=== PATIENT | male | born 1975 | race Caucasian/White ===

== ENCOUNTER 2017-12-03 12:53 | Emergency (ER) | payer OTHER ==
[~2017-12-03] VITALS: Ht 167.6 cm; Wt 81.6 kg
== END 2017-12-03 17:30 | disposition home or self-care (01) ==
LOC: ER 12:53
DX: J32.2 Chronic ethmoidal sinusitis (principal); I10 Essential (primary) hypertension; R42 Dizziness and giddiness; E11.9 Type 2 diabetes mellitus without complications

== ENCOUNTER 2018-05-24 19:55 | Emergency (ER) | payer OTHER ==
[~2018-05-24] VITALS: Ht 167.6 cm; Wt 81.6 kg
== END 2018-05-24 22:47 | disposition home or self-care (01) ==
LOC: ER 19:55
DX: G43.809 Other migraine, not intractable, without status migrainosus (principal)

== ENCOUNTER → 2018-05-30 | Emergency (ER) | payer OTHER ==
[~2018-05-30] VITALS: Ht 167.6 cm; Wt 86.2 kg
== END | disposition designated cancer center or children's hospital (05) ==
LOC: ER 20:44
DX: I60.8 Other nontraumatic subarachnoid hemorrhage (principal)

== ENCOUNTER 2022-06-26 07:53 | Emergency (ER) | payer OTHER ==
[~2022-06-26] VITALS: Ht 172.7 cm; Wt 72.6 kg
[2022-06-26] MEDS ORDERED: COZAAR100 MG PO (08:03)
== END 2022-06-26 12:13 | disposition designated cancer center or children's hospital (05) ==
LOC: ER 07:53
DX: R07.89 Other chest pain (principal)